=== PATIENT | male | born 1990 | race Caucasian/White ===

== ENCOUNTER 2017-10-14 17:28 | Emergency (ER) | payer SELFPAY ==
[2017-10-14] MEDS ORDERED: KETOROLAC TROMETHAMINE 60 MG/2 ML VIAL IM ONE (17:55)
--- NOTE | 2017-10-14 17:59 | ED Physician Documentation ---
General Adult - HISTORIAN Historian: patient - HPI Chief Complaint: General Adult Further Comments: yes (27 year old male patient presents with chest discomfort. Patient reports discomfort for 1 week; worse with movement and cough. Has not used any OTC medications [employer]. Denies any SOB, nausea, vomiting or diaphoresis, denies radiation of pain.) - ROS CONST: no problems EYES/ENT: none CVS/RESP: none GI/: none MS/SKIN/LYMPH: none - PAST HX Past History: none Allergies/Adverse Reactions: Allergies Allergy/AdvReac Type Severity Reaction Status Date / Time No Known Allergies Allergy Verified 01/22/14 17:23 Home Medications: Ambulatory Orders Medication Instructions Recorded Cetirizine HCl [Zyrtec] 10 mg PO BID #60 capsule 01/22/14 Triamcinolone Acetonide 0.1% 1 gm TP TID #1 tube 01/22/14 [Kenalog Cream] diphenhydrAMINE HCL [Benadryl] 50 mg PO Q4 PRN #40 tablet 01/22/14 - SOCIAL HX Smoking History: cigarettes - FAMILY HX Family History: No - VITAL SIGNS Vital Signs: Vital Signs Temp Pulse Resp BP Pulse Ox 127/87 01/22/14 17:45 - REVIEWED ASSESSMENTS Nursing Assessment Reviewed: Yes Vitals Reviewed: Yes Progress - EKG/XRAY/CT EKG: rhythm (Sr, rate 60, no acute changes) ED Results Lab/Radiology - Orders Orders: ED Orders Category Date Time Status Ketorolac Tromethamine [Toradol] Med 10/14/17 17:55 Once 60 mg IM NOW ONE EKG WITH COMPARISON Stat Ther 10/14/17 17:36 Ordered General Adult Physical Exam - PHYSICAL EXAM GENERAL APPEARANCE: [id number] N EENT: eye inspection normal, ENT inspection normal, pharynx normal, no signs of dehydration, LITZY, no nystagmus, TM's nml RESPIRATORY: no resp distress, breath sounds normal, other (tenderness with palpation along left sternal border between ribs 2, 3, 4) CVS: reg rate & rhythm, heart sounds normal, equal pulses, no murmur, no gallop, PMI nml, no JVD, no friction rub, 24 ABDOMEN: soft, no organomegaly, normal bowel sounds, no abdominal bruit, no distension BACK: normal inspection, no CVA tenderness SKIN: normal color, warm/dry, NR, INT, PAL, DR EXTREMITIES: non-tender, normal range of motion, no evidence of injury, no edema, J, [employer] NEURO: oriented X3, CN's nml as tested, motor nml, sensation nml, mood/affect nml Discharge Clincal Impression: Costochondral chest pain Referrals: Primary Doctor,No [Primary Care Provider] - 2 Days Additional Instructions: Rest Ibuprofen 4 tab every 8 hours for the next 3-4 days. Do not take scheduled dose for longer than 4 days. Condition: Stable Disposition: 01 HOME, SELF-CARE Decision to Admit: NO Decision Time: 17:57
[2017-10-14 18:11] VITALS: BP 112/86
== END 2017-10-14 18:20 | disposition home or self-care (01) ==
LOC: ED 17:28
DX: M94.0 Chondrocostal junction syndrome [Tietze] (principal)
CPT/HCPCS: 93005; J1885; 96372; 99283